=== PATIENT | female | born 1950 | race African-American/Black ===

== ENCOUNTER 2019-09-12 10:33 | Day surgery (SDC) | payer OTHER ==
[2019-09-06 12:35] LABS: Urine Appearance CLEAR; Urine Bilirubin NEGATIVE (NEG); Urine Blood NEGATIVE (NEG); Urine Color YELLOW; Urine Glucose NEGATIVE (NEG); Urine Microscopic Reflex ORDER UMIC; Urine Protein NEGATIVE (NEG); Urine Urobilinogen 0.2 mg/dL (0.2-1.0)
[2019-09-06 12:39] LABS: Protime INR 1.03
[2019-09-06 13:06] LABS: Urine Bacteria >50 /HPF (<20); Urine Culture Reflex Order REFLEXED; Urine RBC <5 /HPF (NONE SEEN)
[2019-09-12] MEDS ORDERED: Ringers Lactate 1,000 ML IV ONE (11:17)
[2019-09-12] MEDS ORDERED: SCOPOLAMINE HYDROBROMIDE PATCH TD ONE (11:18)
[2019-09-12 11:43] VITALS: O2SAT 100
[2019-09-12] MEDS ORDERED: NA CHLORIDE 0.9% 100 ML IV ONE (11:52)
[2019-09-12] MEDS ORDERED: NA CHLORIDE 0.9% 1,000 ML ONE (11:52)
[2019-09-12] MEDS ORDERED: propofoL 200 MG/20 ML VIAL IV ONE (12:06)
[2019-09-12] MEDS ORDERED: CEFAZOLIN/SWI 1gm 0 GM/0 ML SYR ONE (12:06)
[2019-09-12] MEDS ORDERED: KETOROLAC 30 MG/ML INJ ONE (12:07)
[2019-09-12] MEDS ORDERED: LIDOCAINE 2% MPF 5 ML VIAL ONE (12:07)
[2019-09-12] MEDS ORDERED: FENTANYL CITR 250 MCG/5 ML ONE (12:07)
[2019-09-12] MEDS ORDERED: dexAMETHasone 10 MG/ML VIAL ONE (12:07)
[2019-09-12] MEDS ORDERED: MIDAZOLAM HCL 2 MG/2 ML INJ ONE (12:07)
[2019-09-12] MEDS ORDERED: ROCURONIUM 50 MG/5 ML VIAL IV ONE (12:08)
[2019-09-12] MEDS ORDERED: ONDANSETRON 4 MG/2 ML VIAL ONE ×2 (12:08→16:24)
[2019-09-12] MEDS: CEFAZOLIN/SWI 2gm 2 GM/20 ML SYR ONE ×2 (12:12→12:33)
[2019-09-12] MEDS: VASOPRESSIN 20 UNIT/ML VIAL ONE ×3 (12:13→13:50)
[2019-09-12] MEDS ORDERED: NEOSTIGMINE 1 MG/ML -5 ML ONE (14:36)
[2019-09-12] MEDS ORDERED: GLYCOPYRROLATE 0.2 MG/ML SYR ONE (14:36)
[2019-09-12] MEDS ORDERED: HYDROCODONE/APAP 5/325 MG TAB ONE ×2 (16:24→17:21)
[2019-09-12 16:30] VITALS: TEMP 97.9
[2019-09-12 17:33] VITALS: BP 118/64
--- NOTE | 2019-09-13 03:45 | OP ---
Date of Procedure: 09/12/2019 Surgeon: Ofelia Pitt MD Fisher Net: Ciera Bowers. Preoperative Diagnoses: Stage III posterior wall defect, posterior enterocele, vaginal wall defect, and perineal body defect. Postoperative Diagnoses: Stage III posterior wall defect, posterior enterocele, vaginal wall defect, and perineal body defect. Procedures Performed: Right sacrospinous ligament fixation, colpopexy, posterior repair, posterior e nterocele repair, perineorrhaphy, and cystoscopy. Anesthesia: General endotracheal. Estimated Blood Loss: 50 mL. Specimens: No specimens. Complications: No complications. Drains: Carlton catheter and vaginal packing. Findings: POP-Q, -2, -1, -4, 5, moderate, 7, 0, +2, and nonapplicable. Indications For Procedure: The patient is a 68-year-old female, presenting with the vaginal wall pro lapse, bulge symptoms, straining with bowels at times. After evaluation and offering conservative treatment, observation with Kegel's and surgical repair, t he patient proceeded with surgical repair. Treatment of constipation and vaginal atrophy treatment w ere started and she was brought to the OR. Description Of Procedure: After informed consent was verified, she was taken back to OR. 2 g of Anc ef were given. She was placed in supine fashion on the operating table. General anesthesia given, p laced in dorsal lithotomy position. SCDs were started. Abdomen, vulva, vagina, and perineum were pr epped and draped in a sterile fashion. Carlton was placed to drain the bladder and clamped with a Forsyth y and this was retracted superiorly. Posteriorly, the pelvic exam, rectovaginal exam were all perfor med. POP-Q as confirmed above. So, plan was to perform a posterior repair followed by posterior ent erocele repair and perineal body repair. There was no need for use of a biological graft. The vaginal length was only 7 cm, slightly shorter. The unilateral sacrospinous fixation was still very feasible and could be performed without any ten aury, so plan was to do a primary repair without use of any graft augmentation. Dilute vasopressin was injected in the perineal body and in the posterior wall in the midline and on the sides. Then, a melody-shaped incision was made on the most prominent part of the defect in the distal half and the vaginal epithelium and sub-epithelium were excised leaving the underlying connect kelly tissue intact, and at the level of the perineal body, another triangular incision was made and sk in was removed leaving the connective tissue intact. After undermining the edges on both sides, the posterior wall was dissected away from the vaginal epi thelium in the superior 1/2 of the incision. The enterocele was dissected. The thin peritoneum was plicated with the help of 3-0 Vicryl sutures in a pursestring fashion. Once the enterocele was close d with pursestring sutures, then the right ischial spine was palpated and sacrospinous ligament was d issected. Capio device was used. With the help of Prolene suture on the Capio in the mid ligament a fter cleaning it away and moving the rectum medially, stitch was placed and a second suture was place d lateral to this mid ligament, but these 2 were clamped on 2 different clamps. Then, the remnant of the uterosacral ligament was picked up with Allis clamps on both sides. The apex of the vaginal wal l was marked with the help of 3-0 Vicryl sutures. Then, the Prolene sutures was passed through each of the remnants of the distal part of the uterosacral ligaments and then they were held on clamps. T here was laxity, mostly the apical prolapse was significant. The enterocele, there was a small tear. The distal part of the rectovaginal septum appeared to be condensed with scar tissue. So, once the apical part was taken care of, then the midline was plicated with the help of 0 PDS in a continuous running fashion to bring the stretched out connective tissue together, and at the level of the perine al body, the PDS was used in a continuous fashion and ran back up and tied. The perineal body was fu rther dissected at the inferior most part and 3 interrupted 2-0 Vicryl sutures were placed for bringi ng it together. The vestibular area was also dissected and the repair was done after that. Very sli ght epithelial trimming was performed, probably less than half a centimeter was done to trim the edge s. Then, with the help of 2-0 Vicryl suture, there was a continuous running suture that was placed i n the vaginal epithelium, closing it vertically. After 3 bites, sacrospinous sutures were tied, the medial one first, then the lateral one. There was excellent apposition of the apex of the vagina to the right sacrospinous without excessive tension. Then, proceeded to finish the closure with the hel p of a continuous running 2-0 Vicryl suture. At the level of the perineum, 3-0 Vicryl was used to go down in the subcutaneous layer and then the subcuticular layer was closed with the same and suture t ied inside the vestibule. There was good apposition at the level of the hymenal ring and the vestibu le was reconstructed as well as the perineal body. There was good support. Rectovaginal exam was pe rformed. No evidence of any trauma to the rectum. After gloves were changed, Carlton was used to drai n the bladder. Then, a cystoscopy was performed with a 17-Marshallese sheath, 30-degree lens, normal sali ne. Excellent streams of urine from both ureteric orifices. No evidence of any trauma to the bladde r. No tumors, diverticula, or stones were seen. There was some trabecular change in the bladder mus marcella. The entire bladder was well visualized including the trigone, dome, lateral king right above t he internal meatus. The urethra was inspected as well on the way out. Bladder was then drained. Fo omar was placed and attached to the drainage. Then, vaginal packing was performed. Instrument, needl e, and sponge counts were correct at the end of the case. The patient tolerated the procedure well. EBL was less than 50. The patient was discharged home with the vaginal packing and Carlton. Vaginal packing to be removed at 6 a.m. tomorrow and Carlton to be removed at 6 a.m. on , which is 2 da ys from now and then the patient to come in for a voiding trial. [place] and Titi have been alva d in for this patient. She also has a 1 week postop appointment. HEAHT/CARINA Voice ID: [id number] Report ID: [id number]
== END 2019-09-12 17:25 | disposition home or self-care (01) ==
LOC: OR 10:33
PROVIDERS: ATTEND Obstetrics & Gynecology
PROC: 0JQC0ZZ Repair Pelvic Region Subcutaneous Tissue and Fascia, Open Approach (ICD-10-PCS; 2019-09-12)
PROC: 0WQNXZZ Repair Female Perineum, External Approach (ICD-10-PCS; 2019-09-12)
PROC: 0USG7ZZ Reposition Vagina, Via Natural or Artificial Opening (ICD-10-PCS; principal; 2019-09-12 11:30)
DX: N99.3 Prolapse of vaginal vault after hysterectomy (principal); N95.2 Postmenopausal atrophic vaginitis; K59.00 Constipation, unspecified; I10 Essential (primary) hypertension; Z11.59 Encounter for screening for other viral diseases; E78.00 Pure hypercholesterolemia, unspecified; Z80.1 Family history of malignant neoplasm of trachea, bronchus and lung; Z82.49 Family history of ischemic heart disease and other diseases of the circulatory system
CPT/HCPCS: 57282; 57250; 87088; 87086; 36415; 86900; 86850; 85610; 86901; 85730; U0002; J2704; J2250; J3010; J1100; J2710; J0690; J7120; J7030; J2405 ×2; 81003; 81015